=== PATIENT | male | born 2000 | race Caucasian/White ===

== ENCOUNTER 2022-09-07 23:44 | Emergency (ER) | payer OTHER, SELFPAY ==
--- NOTE | ~2022-09-07 | XR_ITS ---
EXAMINATION: XR hand RT min 3V DATE: 09/08/2022 00:14 INDICATION: Right hand laceration between the first and second digits. TECHNIQUE: 3 views of right hand were obtained. COMPARISON: None. FINDINGS: Bone alignment is normal. No fracture. 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 IMPRESSION: 1. No fracture or radiopaque foreign body. Reviewed, dictated and finalized at [facility]
[2022-09-07 23:52] VITALS: BP 151/93; PULSE 69; RESP 18; TEMP 36.7; O2SAT 100
--- NOTE | 2022-09-08 01:26 | ED.WOUNDLAC ---
HPI - Wound/Laceration General Chief Complaint: Wound/Laceration <CHARU Harrison Last Filed: 09/08/22 02:13> Stated Complaint: Laceration to Right Hand <CHARU Harrison Last Filed: 09/08/22 02:13> Time Seen by Provider: 09/08/22 01:10 <CHARU Harrison Last Filed: 09/08/22 02:13> Source: patient <CHARU Harrison Last Filed: 09/08/22 02:13> Mode of arrival: ambulatory <CHARU Harrison Last Filed: 09/08/22 02:13> Limitations: no limitations <CHARU Harrison Last Filed: 09/08/22 02:13> History of Present Illness HPI narrative: Patient is a 22 y/o male who presents to the ED with c/o a laceration to his R hand. Patient reports he accidentally grabbed for a kitchen knife that was falling and sustained a laceration in the webspace between his thumb and second digit of his left hand. No other injuries. Bleeding controlled by the time of my evaluation. No numbness, tingling. Tetanus status unknown. <CHARU Harrison Last Filed: 09/08/22 02:13> Related Data Home Medications: Home Medications Medication Instructions Recorded Confirmed No Home Medications 09/07/22 09/07/22 <CHARU Harrison Last Filed: 09/08/22 02:13> Allergies/Adverse Reactions: Allergies Allergy/AdvReac Type Severity Reaction Status Date / Time No Known Allergies Allergy Verified 09/07/22 23:56 <CHARU Harrison Last Filed: 09/08/22 02:13> Review of Systems Review of Systems: CONSTITUTIONAL: Denies fever, chills, or sweats. EYES: Denies visual changes. ENT: Denies rhinorrhea, congestion, sore throat. CARDIOVASCULAR: Denies chest pain. RESPIRATORY: Denies dyspnea. GASTROINTESTINAL: Denies abdominal pain, nausea, vomiting. GENITOURINARY: Denies dysuria or hematuria. SKIN: Reports laceration to R hand. MUSCULOSKELETAL: Denies pain. NEUROLOGIC: Denies tingling, numbness, or weakness. <Ellie Thompson PA-C - Last Filed: 09/08/22 02:13> All systems reviewed & are unremarkable except as noted in HPI and below <Ellie Thompson PA-C - Last Filed: 09/08/22 02:13> [facility] Past Medical History Medical History: Medical History (Updated 09/08/22 @ 02:08 by Ellie Thompson PA-C) No pertinent past medical history <Ellie Thompson PA-C - Last Filed: 09/08/22 02:13> Surgical History Surgical History: Surgical History (Updated 09/08/22 @ 01:29 by Ellie Thompson PA-C) No pertinent past surgical history <Ellie Thompson PA-C - Last Filed: 09/08/22 02:13> Social History Social History: Social History (Updated 09/08/22 @ 01:29 by Ellie Thompson PA-C) Smoking status: Never smoker <Ellie Thompson PA-C - Last Filed: 09/08/22 02:13> Exam Narrative: GENERAL: Well appearing, well-nourished, non-toxic, in no acute distress. HEAD: Normocephalic, atraumatic. NECK: Supple. No adenopathy, no masses. RESPIRATORY: Airway patent, respirations nonlabored. Clear to auscultation bilaterally, no rales, rhonchi, wheezing. CARDIOVASCULAR: Regular rate and rhythm without murmurs, rubs, or gallops. Radial pulses 2+ and equal bilaterally. MUSCULOSKELETAL: Moves all extremities. Strength/ROM intact without gross deformities. Full range of motion of fingers. Full nonpainful abduction, adduction, flexion, extension, and opposition of thumb. SKIN: Warm, dry, normal color. No rashes. 2 cm laceration to webspace between thumb and second digit of right hand, minimal active bleeding. NEURO: A&O X3. Speech clear. Cranial nerves II-XII grossly intact. Steady gait. No ataxic movements. PSYCHIATRIC: Appropriate mood and affect. Normal interaction. <Ellie Thompson PA-C - Last Filed: 09/08/22 02:13> Course NETWORK DESIGNER/PA Physician Supervision For this encounter, I have reviewed the mid-level provider documentation, treatment plan and medical decisi
[2022-09-08] MEDS: LIDOCAINE HCL 1% PF 30 ML VIAL 5 ML INFILTRATE (01:33)
[2022-09-08] MEDS: TETANUS,DIPHTHERIA,AC PERTUSSIS ADULT (0.5 ML) BOOSTRIX IM (01:41)
[2022-09-08 01:52] VITALS: BP 136/73; PULSE 72; RESP 16; O2SAT 99
== END 2022-09-08 02:12 | disposition home or self-care (01) ==
PROVIDERS: Emergency Provider Emergency Medicine
DX: S61.411A Laceration without foreign body of right hand, initial encounter (principal); W26.0XXA Contact with knife, initial encounter; Z23 Encounter for immunization
CPT/HCPCS: 12001; 73130; 90471; 90715; 99283

== ENCOUNTER → 2023-05-26 10:47 | Outpatient (CLI) | payer OTHER, SELFPAY ==
--- NOTE | ~2023-05-26 | XR_ITS ---
Cervical Spine: AP, lateral, open-mouth views Clinical History: Pain Findings: The normal lordotic curve is maintained. The vertebral bodies and posterior elements appea r intact. The intervertebral disc spaces are well maintained. Pre-vertebral soft tissues are unremar kable. Impression: No significant abnormality is seen. Reviewed, dictated and finalized at [facility]. Impression: No significant abnormality is seen.
--- NOTE | ~2023-05-26 | XR_ITS ---
Lumbosacral Spine: AP and lateral views Clinical History: Pain Findings: The normal lordotic curve is maintained. The vertebral bodies and posterior elements are i ntact. The intervertebral disc spaces are preserved. The sacroiliac joints are normally outlined. Impression: No significant abnormality. Reviewed, dictated and finalized at [facility]. Impression: No significant abnormality.
== END ==
PROVIDERS: PCP Nurse Practitioner Family; Visit Provider Nurse Practitioner Family
DX: M54.2 Cervicalgia (principal); M54.50 Low back pain, unspecified
CPT/HCPCS: 72040; 72100

== ENCOUNTER 2023-07-19 02:58 | Emergency (ER) | payer OTHER, SELFPAY ==
--- NOTE | ~2023-07-19 | CT_ITS ---
CT of the Abdomen and Pelvis: Indication: Abdominal pain Technique: 2.5 mm axial scans were obtained through the abdomen and pelvis following intravenous adm inistration of 100 cc of Omnipaque 350. Dose reduction technique was used on this scan by utilizing a utomated exposure control and iterative reconstruction technique. The dose-length product (DLP) was 5 10.08 mGy-cm. Findings: Scans through the lung bases are unremarkable. The liver, spleen, pancreas, gallbladder, adrenals and kidneys are within normal limits. No evidence of aortic aneurysm. No lymphadenopathy. No bowel obstruction or bowel wall thickening. There is no evidence to suggest acute appendicitis. Images through the pelvis were performed. Urinary bladder unremarkable. Prostate gland and seminal ve sicles are unremarkable. No ascites. Impression: No significant abnormalities seen. Reviewed, dictated and finalized at [facility]. Impression: No significant abnormalities seen.
[2023-07-19 03:01] VITALS: BP 137/88; PULSE 74; RESP 16; TEMP 36.8; O2SAT 100
[2023-07-19] MEDS: ONDANSETRON INJ 4 MG/2 ML VIAL IV PUSH (03:45)
[2023-07-19] MEDS: SODIUM CHLORIDE 0.9% IV 1,000 ML 999 ML IV CONT (03:45)
[2023-07-19] MEDS: MORPHINE SULFATE (*CRX) 4 MG/ML INJ IV PUSH (03:47)
[2023-07-19 03:53] LABS: Basophils Percent Auto 0.4 % (0.2-1.2); Eosinophils Absolute Auto 0.2 K/mm3 (0-0.3); Eosinophils Percent Auto 1.5 % (0-4.4); Hematocrit 43.3 % (42.0-52.0); Hemoglobin 14.8 g/dL (14.0-18.0); Immature Granulocyte Absolute 0.05 K/mm3 (0.00-0.031); Immature Granulocyte Percent A 0.5 % (0-0.5); Lymphocytes Percent Auto 38.5 % (18.3-44.2); Mean Corpuscular HGB Conc 34.2 g/dl (32-36); Mean Corpuscular Hemoglobin 31.9 pg (26-34); Mean Corpuscular Volume 93.3 fl (80-100); Monocytes Absolute Auto 0.6 K/mm3 (0.1-0.6); Monocytes Percent Auto 5.9 % (2.6-8.5); Neutrophils Absolute Auto 5.4 K/mm3 (1.3-6.7); Neutrophils Percent Auto 53.2 % (45.5-73.1); Platelet Count Result 249 k/mm3 (150-375); Red Blood Count 4.64 M/mm3 (4.6-6.20); White Blood Count 10.1 K/mm3 (4.5-10.0)
--- NOTE | 2023-07-19 03:53 | ED.GENADULT ---
HPI - General Adult General Chief complaint: Abdominal Pain Stated complaint: abd pain, nausea Time Seen by Provider: 07/19/23 03:09 History of Present Illness HPI narrative: Patient a 23-year-old gentleman who presents emergency department with chief complaint of abdominal pain. Patient reports that started having discomfort on the left side of his abdomen the patient reports that the pain is sharp, which is not improved by anything. Patient states he has had no diarrhea Related Data Allergies Allergy/AdvReac Type Severity Reaction Status Date / Time No Known Allergies Allergy Verified 07/19/23 03:16 Review of Systems Review of Systems: A 10 system review of systems was completed on the patient and is negative except for what is stated in the HPI. Nursing and ancillary documentation was reviewed. PMFSH Past Medical History Medical History No pertinent past medical history Surgical History Surgical History No pertinent past surgical history Social History Social History Smoking status: Never smoker Exam Narrative: GENERAL: Well-appearing, well-nourished, and in no acute distress. HEAD: Normocephalic, atraumatic. EYES: PERRLA and EOMI. ENT: Nares clear, no rhinorrhea or epistaxis. Mucous membranes moist. NECK: Supple. CHEST: Clear to auscultation. No respiratory distress. HEART: Regular rate and rhythm. No murmur heard. Normal peripheral pulses. ABDOMEN: Soft, tenderness to palpation of the left side of the abdomen, nondistended, normal active bowel sounds. EXTREMITIES: Normal range of motion. No edema. SKIN: Warm, dry, no rash. NEURO: No focal deficits. Alert and oriented x3. PSYCH: Normal mood and affect. Course Vital Signs Vital signs: Vital Signs Temperature 36.8 C 07/19/23 03:01 Pulse Rate 74 07/19/23 03:01 Respiratory Rate 16 07/19/23 03:01 Blood Pressure 137/88 07/19/23 03:01 Pulse Oximetry 100 07/19/23 03:01 Temperature 36.8 C 07/19/23 03:01 Pulse Rate 66 07/19/23 05:22 Respiratory Rate 14 07/19/23 05:22 Blood Pressure 132/88 07/19/23 05:22 Pulse Oximetry 100 07/19/23 05:22 Medical Decision Making MDM Narrative Medical decision making narrative: Differential diagnosis includes colitis diverticulitis, gastroenteritis Laboratory studies were obtained which showed normal CBC normal CMP urinalysis was negative. CT scan of the abdomen pelvis showed no acute intra-abdominal pathology Patient was started on Bentyl and antiemetic. Vital Signs Vital Signs: Vital Signs Temperature 36.8 C 07/19/23 03:01 Pulse Rate 74 07/19/23 03:01 Respiratory Rate 16 07/19/23 03:01 Blood Pressure 137/88 07/19/23 03:01 Pulse Oximetry 100 07/19/23 03:01 Temperature 36.8 C 07/19/23 03:01 Pulse Rate 66 07/19/23 05:22 Respiratory Rate 14 07/19/23 05:22 Blood Pressure 132/88 07/19/23 05:22 Pulse Oximetry 100 07/19/23 05:22 Lab Data 07/19/23 03:44 07/19/23 04:09 Labs: Lab Results 07/19/23 07/19/23 Range/Units 03:44 04:09 WBC 10.1 H (4.5-10.0) K/mm3 RBC 4.64 (4.6-6.20) M/mm3 Hgb 14.8 (14.0-18.0) g/dL Hct 43.3 (42.0-52.0) % MCV 93.3 (80-100) fl MCH 31.9 (26-34) pg MCHC 34.2 (32-36) g/dl RDW 12.0 (11.5-14.5) % Plt Count 249 (150-375) k/mm3 MPV 10.0 (7.4-10.4) fl Immature Gran % (Auto) 0.5 (0-0.5) % Neut % (Auto) 53.2 (45.5-73.1) % Lymph % (Auto) 38.5 (18.3-44.2) % Mercer % (Auto) 5.9 (2.6-8.5) % Eos % (Auto) 1.5 (0-4.4) % Baso % (Auto) 0.4 (0.2-1.2) % Lymph # (Auto) 3.90 H (0.9-3.2) K/mm3 Mercer # (Auto) 0.6 (0.1-0.6) K/mm3 Eos # (Auto) 0.2 (0-0.3) K/mm3 Baso # (Auto) 0.0 (0.0-0.1) K/mm3 Abs Immat Gran (auto)
[2023-07-19 03:54] LABS: Appearance Urine Clear (Clear); Bilirubin Urine Negative (Negative); Blood Urine Negative (Negative); Color Urine Yellow (Yellow); Glucose Urine UA Negative (Negative); Ketones Urine Negative (Negative); Leukocyte Esterase Ur Negative LEU/UL (Negative); Nitrate Urine Negative (Negative); Protein Urine Negative (Negative); Specific Grav Ur 1.031 (1.001-1.035); pH Urine 5.5 (5.0-9.0)
[2023-07-19 03:59] LABS: Add Urine Microscopic? NO
[2023-07-19 04:24] LABS: Alanine Aminotransferase 17 U/L (6-50); Albumin Level 4.1 g/dL (3.5-5.1); Alkaline Phosphatase 71 U/L (38-126); Anion Gap 6 mmol/L (8-16); Aspartate Amino Transferase 20 U/L (17-59); Bilirubin,Total 0.4 mg/dL (0.2-1.3); Blood Urea Nitrogen 11 mg/dL (9-20); Calcium 8.6 mg/dL (8.4-10.2); Carbon Dioxide 26 mmol/L (22-30); Chloride 105 mmol/L (98-107); Estimated CRCL calculation 127 ml/min; Estimated Glomerular Filt Rate > 60; Glucose 98 mg/dL (65-110); Lipase 88 U/L (23-300); Potassium 4.1 mmol/L (3.4-5.0); Sodium 137 mmol/L (137-145)
[2023-07-19 05:22] VITALS: BP 132/88; PULSE 66; RESP 14; O2SAT 100
[2023-07-19 06:25] VITALS: BP 131/74; PULSE 90; RESP 17; O2SAT 100
== END 2023-07-19 06:25 | disposition home or self-care (01) ==
PROVIDERS: Emergency Provider Emergency Medicine; PCP Nurse Practitioner Family
DX: R10.9 Unspecified abdominal pain (principal)
CPT/HCPCS: 36415; 74177; 80053; 81003; 83690; 85025; 96361; 96374; 96375; 99284; J2270; J2405; J7030; Q9967